=== PATIENT | male | born 1935 | race Caucasian/White ===

== ENCOUNTER → 2017-09-18 | Outpatient (CLI) | payer MEDICARE, BC ==
--- NOTE | 2017-09-18 14:42 | XR ---
Abdomen HISTORY: Kidney stone, N 20, calculus left ureter Frontal view of the abdomen submitted on 2 images No comparisons Multiple calcifications in the pelvis are felt likely to be vascular. Surgical clips present in the r ight upper quadrant. Bone mineralization is reduced. Multilevel spondylosis present, there is spinal curvature. Lung bases are clear. No pneumoperitoneum or bowel obstruction. There is calcification ove r the lower pole left kidney measuring approximately 4 mm in size. Question calcification superimpose d over the sacroiliac left measuring 5 mm. There is eventration of the right hemidiaphragm. IMPRESSION: Left nephrolithiasis suspected. Scoliosis, overlying bowel gas may be obscuring detail. I ndeterminate calcifications in the pelvis.
== END | disposition home or self-care (01) ==
LOC: RADXRMAIN 11:49
PROVIDERS: ATTEND Urology
DX: N20.1 Calculus of ureter (principal)
CPT/HCPCS: 74018